=== PATIENT | male | born 1945 | race Caucasian/White ===

== ENCOUNTER → 2021-08-24 08:29 | Outpatient (BNVA) | payer MEDICARE, SELFPAY | PROVIDERS: Family Provider Nurse Practitioner Family; PCP Family Medicine; Visit Provider Internal Medicine Rheumatology | DX: M15.9 Polyosteoarthritis, unspecified (principal); R76.8 Other specified abnormal immunological findings in serum; Z79.899 Other long term (current) drug therapy; Z11.59 Encounter for screening for other viral diseases; Z11.1 Encounter for screening for respiratory tuberculosis; Z71.89 Other specified counseling | CPT/HCPCS: 99204 ==

== ENCOUNTER 2021-08-24 10:14 | Outpatient (CLI) | payer MEDICARE, SELFPAY ==
--- NOTE | 2021-08-24 10:29 | XR_ITS ---
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 An anchoring screw is noted in the humeral head. Minimal DJD at the glenohumeral joint and AC joint. XR/XR shoulder RT min 2V* [id number] IMPRESSION: 1. Mild DJD. No fracture or dislocation.
--- NOTE | 2021-08-24 10:29 | XR_ITS ---
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 Mild degenerative changes in the IP and MP joints. Subcortical cyst formation in the proximal and distal thumb metacarpal. No soft tissue foreign bodies. Marked degener ative change at the radiocarpal joint with subcortical cyst formation in several carpal bones as well as the distal radius. There is also bony sclerosis of the lunate which might indicate osteonecrosis. There is separation of the scaphoid and lunate which may be secondary to previous ligamentous injury . XR/XR hand RT min 3V* [id number] IMPRESSION: 1. Degenerative changes of the hand and wrist as detailed above. 2. No fracture or dislocation. 3. Bony sclerosis of the lunate that might indicate osteonecrosis.
--- NOTE | 2021-08-24 10:29 | XR_ITS ---
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 Mild degenerative changes in the MP and IP joints. Moderate degener ative change at the CMC joint of the thumb. Several subcortical cysts are noted in the carpal bones a nd distal radius. There are two 3 mm metallic soft tissue foreign bodies in the hand. One near the ba se of the proximal phalanx of the third finger and the second in the soft tissue interspace between t he first and second metacarpals. XR/XR hand LT min 3V* [id number] IMPRESSION: 1. No fracture or dislocation. 2. Degenerative changes of the hand and wrist as noted above. 3. There are two 3 mm metallic soft tissue foreign bodies in the left hand as n oted above.
--- NOTE | 2021-08-24 10:29 | XR_ITS ---
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 Soft tissue calcification along the humeral head suggesting calcifi c tendinitis or bursitis. DJD at the glenohumeral joint and the AC joint. Subcortical cyst formation in the humeral head. XR/XR shoulder LT min 2V* [id number] IMPRESSION: 1. No fracture or dislocation. 2. Degenerative changes. 3. Soft tissue calcification along the humeral head that may indicate calcific tendinitis or bursitis.
[2021-08-24 11:40] LABS: Bilirubin Urine Neg (Negative); Blood Urine Neg (Negative); Glucose Urine UA Norm (Normal); Ketones Urine Negative (Negative); Leukocyte Esterase Urine Negative (Negative); Nitrate Urine Negative (Negative); Protein Urine Neg (Negative); Urine Appearance Clear (CLEAR); Urine Color Straw (Yellow); Urobilinogen Urine Norm (Negative); pH Urine 5 (5-7)
[2021-08-24 11:49] LABS: Add Urine Culture? No; RBC Urine 0-4 /hpf (0-2); Squamous Epithelial Cell Urine 0-4 /hpf (0-5); WBC Urine 0-4 /hpf (0-5)
[2021-08-24 12:01] LABS: Urine Creatinine 137 mg/dL (39-259); Urine Protein Random 7 mg/dL
[2021-08-24 12:03] LABS: 25 Hydroxy Vitamin D 49 ng/mL (30-100)
[2021-08-24 12:05] LABS: Hepatitis B Core AB, Total Non-Reactive (Nonreactive); Hepatitis B Surface Antigen Non-Reactive (Nonreactive); Hepatitis C Virus Antibody Non-Reactive (Nonreactive)
[2021-08-25 10:32] LABS: CENTROMERE B ANTIBODY <1.0 NEG AI (<1.0 NEG); JO-1 ANTIBODY <1.0 NEG AI (<1.0 NEG); RNP ANTIBODY <1.0 NEG AI (<1.0 NEG); SCL-70 ANTIBODY <1.0 NEG AI (<1.0 NEG); SJOGREN'S ANTIBODY (SS-A) <1.0 NEG AI (<1.0 NEG); SM ANTIBODY <1.0 NEG AI (<1.0 NEG); SS-B <1.0 NEG AI (<1.0 NEG)
[2021-08-25 17:32] LABS: ANA SCREEN, IFA NEGATIVE (NEGATIVE)
[2021-08-26 12:13] LABS: COMPLEMENT COMPONENT C3C 129 mg/dL (82-185); COMPLEMENT COMPONENT C4C 27 mg/dL (15-53)
[2021-08-26 14:28] LABS: COMPLEMENT, TOTAL (CH50) >60 U/mL (31-60)
[2021-08-26 14:32] LABS: THYROID PEROXIDASE ANTIBODIES 6 IU/mL (<9)
[2021-08-26 15:37] LABS: Quantiferon Mitogen 9.45 IU/mL; Quantiferon Nil 0.03 IU/mL; Quantiferon Plus TB1 0.01 IU/mL; Quantiferon Plus TB2 0.01 IU/mL; Quantiferon TB Gold NEGATIVE (NEGATIVE)
== END 2021-08-24 10:15 | disposition home or self-care (01) ==
LOC: RAD 10:27
PROVIDERS: PCP Family Medicine; Visit Provider Internal Medicine Rheumatology
DX: M19.90 Unspecified osteoarthritis, unspecified site (principal); R76.8 Other specified abnormal immunological findings in serum; Z79.899 Other long term (current) drug therapy; Z11.59 Encounter for screening for other viral diseases; Z11.1 Encounter for screening for respiratory tuberculosis
CPT/HCPCS: 36415; 73030; 73130; 81001; 82306; 82570; 84156; 86160; 86162; 86235; 86255; 86376; 86480; 86704; 86803; 87340

== ENCOUNTER → 2021-12-15 10:18 | Outpatient (BNVA) | payer MEDICARE, SELFPAY | PROVIDERS: PCP Family Medicine; Visit Provider Internal Medicine Rheumatology | DX: M19.90 Unspecified osteoarthritis, unspecified site (principal); Z71.89 Other specified counseling; Z79.899 Other long term (current) drug therapy; M06.041 Rheumatoid arthritis without rheumatoid factor, right hand; M06.042 Rheumatoid arthritis without rheumatoid factor, left hand; R76.8 Other specified abnormal immunological findings in serum; Z79.52 Long term (current) use of systemic steroids | CPT/HCPCS: 99214 ==

== ENCOUNTER → 2022-02-10 12:23 | Outpatient (BNVA) | payer MEDICARE, SELFPAY | PROVIDERS: PCP Family Medicine; Visit Provider Nurse Practitioner Family | DX: Z20.822 Contact with and (suspected) exposure to COVID-19 (principal); Z11.52 Encounter for screening for COVID-19; Z13.9 Encounter for screening, unspecified; J40 Bronchitis, not specified as acute or chronic; R05.9 Cough, unspecified; J32.9 Chronic sinusitis, unspecified | CPT/HCPCS: 87635 ==

== ENCOUNTER → 2022-04-12 09:42 | Outpatient (BNVA) | payer MEDICARE, SELFPAY | PROVIDERS: PCP Nurse Practitioner Family; Visit Provider Internal Medicine Rheumatology | DX: R76.8 Other specified abnormal immunological findings in serum (principal); M06.041 Rheumatoid arthritis without rheumatoid factor, right hand; M06.042 Rheumatoid arthritis without rheumatoid factor, left hand; M15.9 Polyosteoarthritis, unspecified; Z79.899 Other long term (current) drug therapy; Z71.89 Other specified counseling | CPT/HCPCS: 80076; 82565; 85025; 86140; 99214 ==

== ENCOUNTER → 2022-05-24 14:35 | Outpatient (BNVA) | payer MEDICARE, SELFPAY | PROVIDERS: PCP Nurse Practitioner Family; Visit Provider Internal Medicine | DX: R55 Syncope and collapse (principal); R00.1 Bradycardia, unspecified | CPT/HCPCS: 93229 ==

== ENCOUNTER → 2022-07-27 10:15 | Outpatient (BNVA) | payer MEDICARE, SELFPAY | PROVIDERS: PCP Nurse Practitioner Family; Visit Provider Internal Medicine Rheumatology | DX: R76.8 Other specified abnormal immunological findings in serum (principal); M06.041 Rheumatoid arthritis without rheumatoid factor, right hand; M06.042 Rheumatoid arthritis without rheumatoid factor, left hand; Z79.899 Other long term (current) drug therapy; Z71.89 Other specified counseling; M15.9 Polyosteoarthritis, unspecified | CPT/HCPCS: 99214 ==

== ENCOUNTER → 2022-09-04 10:56 | Outpatient (BNVA) | payer MEDICARE, SELFPAY | PROVIDERS: PCP Nurse Practitioner Family; Visit Provider Nurse Practitioner Family | DX: I10 Essential (primary) hypertension (principal) | CPT/HCPCS: 80053; 80061 ==

== ENCOUNTER → 2022-10-31 10:48 | Outpatient (BNVA) | payer MEDICARE, SELFPAY | PROVIDERS: PCP Nurse Practitioner Family; Visit Provider Internal Medicine Rheumatology | DX: M06.041 Rheumatoid arthritis without rheumatoid factor, right hand (principal); M06.042 Rheumatoid arthritis without rheumatoid factor, left hand; Z79.899 Other long term (current) drug therapy; R76.8 Other specified abnormal immunological findings in serum; Z71.89 Other specified counseling; M15.9 Polyosteoarthritis, unspecified; Z79.52 Long term (current) use of systemic steroids | CPT/HCPCS: 99214 ==

== ENCOUNTER → 2023-02-27 10:52 | Outpatient (BNVA) | payer MEDICARE, SELFPAY | PROVIDERS: PCP Nurse Practitioner Family; Visit Provider Internal Medicine Rheumatology | DX: M06.041 Rheumatoid arthritis without rheumatoid factor, right hand (principal); M06.042 Rheumatoid arthritis without rheumatoid factor, left hand; Z79.899 Other long term (current) drug therapy; M54.2 Cervicalgia; R76.8 Other specified abnormal immunological findings in serum; Z71.89 Other specified counseling | CPT/HCPCS: 72040; 99214 ==

== ENCOUNTER 2023-03-29 08:17 | Outpatient (CLI) | payer MEDICARE, SELFPAY ==
[2023-03-29 08:49] LABS: Basophils % 0.5 %; Eosinophils # 0.1 10^3/uL (0.0-0.8); Eosinophils % 1.8 %; Hematocrit 38.9 % (42.0-52.0); Hemoglobin 12.6 g/dL (11.7-16.6); Lymphocytes # 2.4 10^3/uL (0.8-4.8); Lymphocytes % 38.5 %; Mean Corpuscular HGB Conc 32.4 g/dL (30.0-36.0); Mean Corpuscular Hemoglobin 30.9 pg (28.0-34.0); Mean Corpuscular Volume 95.3 fl (80-94); Mean Platelet Volume 9.4 fL (7.4-10.4); Monocytes # 0.5 10^3/uL (0.2-0.9); Monocytes % 7.6 %; Neutrophils # 3.21 10^3/uL (1.8-7.7); Neutrophils % 51.1 %; Nucleated Red Blood Cells % 0 %; Platelet Count 223 10^3/cmm (130-400); Red Blood Count 4.08 10^6/uL (4.1-5.3); Red Cell Distribution Width 12.8 % (12.1-15.1); White Blood Count 6.3 10^3/uL (4.0-10.0)
[2023-03-29 09:10] LABS: Alanine Aminotransferase 20 U/L (0-41); Albumin Level 4.2 g/dL (3.5-5.2); Alkaline Phosphatase 65 U/L (40-130); Aspartate Amino Transferase 17 U/L (0-40); Globulin 2.2 g/dL (1.3-4.6); Total Bilirubin 0.4 mg/dL (0.15-1.2); Total Protein 6.4 g/dL (6.6-8.7)
== END 2023-03-29 08:18 | disposition home or self-care (01) ==
PROVIDERS: PCP Nurse Practitioner Family; Visit Provider Internal Medicine Rheumatology
DX: M06.041 Rheumatoid arthritis without rheumatoid factor, right hand (principal); M06.042 Rheumatoid arthritis without rheumatoid factor, left hand; Z79.899 Other long term (current) drug therapy
CPT/HCPCS: 36415; 80076; 82565; 85025; 86140

== ENCOUNTER → 2023-06-05 10:39 | Outpatient (BNVA) | payer MEDICARE, SELFPAY | PROVIDERS: PCP Nurse Practitioner Family; Visit Provider Internal Medicine Rheumatology | DX: M06.041 Rheumatoid arthritis without rheumatoid factor, right hand (principal); M06.042 Rheumatoid arthritis without rheumatoid factor, left hand; Z71.89 Other specified counseling; R76.8 Other specified abnormal immunological findings in serum; Z79.899 Other long term (current) drug therapy | CPT/HCPCS: 36415; 80076; 82565; 85025; 86140; 99214 ==

== ENCOUNTER → 2023-07-09 09:34 | Outpatient (BNVA) | payer MEDICARE, SELFPAY | PROVIDERS: PCP Nurse Practitioner Family; Referring Provider Nurse Practitioner Family; Visit Provider Specialist | DX: M19.012 Primary osteoarthritis, left shoulder | CPT/HCPCS: 73030; 99204 ==

== ENCOUNTER → 2023-07-17 08:43 | Outpatient (BNVA) | payer MEDICARE, SELFPAY | PROVIDERS: PCP Nurse Practitioner Family; Visit Provider Physician Assistant | DX: M47.812 Spondylosis without myelopathy or radiculopathy, cervical region; M50.30 Other cervical disc degeneration, unspecified cervical region | CPT/HCPCS: 72050; 99214 ==

== ENCOUNTER 2023-08-01 09:10 | Outpatient (CLI) | payer MEDICARE, SELFPAY ==
--- NOTE | 2023-08-01 09:30 | MR_ITS ---
WS: [id number] MRI RIGHT SHOULDER HISTORY: Pain COMPARISON: Radiographs 07/09/2023. TECHNIQUE: Multiplanar sequences of the shoulder joint are submitted. Moderate AC joint arthritis. Increased soft tissue and bone hypertrophy. Mild subacromial impingement . No significant downsloping of the acromion. Subchondral cystic changes are noted in the distal clav icle. Normal position of the biceps tendon. No os acromion. Mildly high riding humeral head. Moderate glenohumeral joint narrowing. Mild osteophytic ridging arou nd the humeral head and also the glenoid. Subchondral cystic changes in the glenoid along with loss o f cartilage. There is a single anchor in the RIGHT humeral head. Mild atrophy of the supraspinatus muscle. No edema or fatty replacement. There is encroachment upon t he distal supraspinatus tendon by the high riding humeral head. There is marked thickening and increa sed T2 signal in the distal tendon. No tendon retraction. Changes are most consistent with marked ten dinopathy. No tear is identified within the rotator cuff. Advanced degenerative changes at the labrum . Anterior labrum is small caliber with increased T2 signal and cystic changes. IMPRESSION: 1. Prior rotator cuff repair. Single anchor present in the humeral head. 2. Moderate AC joint arthritis. 3. Advanced rotator cuff tendinopathy in the distal supraspinatus tendon. No tear is identified. 3. Moderate glenohumeral joint arthritic and degenerative changes. 4. Abnormal labrum. Small caliber anterior labrum with cystic changes consistent with internal degene ration.
== END 2023-08-01 09:11 | disposition home or self-care (01) ==
PROVIDERS: PCP Nurse Practitioner Family; Visit Provider Specialist
DX: M19.011 Primary osteoarthritis, right shoulder (principal); M67.813 Other specified disorders of tendon, right shoulder; M24.111 Other articular cartilage disorders, right shoulder
CPT/HCPCS: 73221

== ENCOUNTER → 2023-08-02 08:35 | Outpatient (BNVA) | payer MEDICARE, SELFPAY | PROVIDERS: PCP Nurse Practitioner Family; Visit Provider Physician Assistant | DX: M47.812 Spondylosis without myelopathy or radiculopathy, cervical region (principal); M50.30 Other cervical disc degeneration, unspecified cervical region | CPT/HCPCS: 99213 ==

== ENCOUNTER → 2023-08-20 08:54 | Outpatient (BNVA) | payer MEDICARE, SELFPAY | PROVIDERS: PCP Nurse Practitioner Family; Visit Provider Specialist | DX: M12.811 Other specific arthropathies, not elsewhere classified, right shoulder (principal) | CPT/HCPCS: 99214 ==

== ENCOUNTER → 2023-10-01 11:03 | Outpatient (BNVA) | payer MEDICARE, SELFPAY | PROVIDERS: PCP Nurse Practitioner Family; Visit Provider Nurse Practitioner Family | DX: I10 Essential (primary) hypertension (principal); Z20.822 Contact with and (suspected) exposure to COVID-19; R05.9 Cough, unspecified | CPT/HCPCS: 80053; 80061 ==

== ENCOUNTER → 2024-01-02 10:02 | Outpatient (BNVA) | payer MEDICARE, SELFPAY | PROVIDERS: PCP Nurse Practitioner Family; Visit Provider Nurse Practitioner Family | DX: L20.9 Atopic dermatitis, unspecified (principal); J30.2 Other seasonal allergic rhinitis; I10 Essential (primary) hypertension; Z79.899 Other long term (current) drug therapy | CPT/HCPCS: 80053; 82785; 86003 ==

== ENCOUNTER → 2024-03-13 08:54 | Outpatient (BNVA) | payer MEDICARE, SELFPAY | PROVIDERS: PCP Nurse Practitioner Family; Visit Provider Nurse Practitioner Family | DX: I10 Essential (primary) hypertension (principal) | CPT/HCPCS: 80053; 80061; 85025 ==